=== PATIENT | female | born 1970 | race Caucasian/White ===

== ENCOUNTER → 2016-12-16 | Outpatient (CLI) | payer OTHER ==
[2016-12-16 13:33] LABS: BASO % 0.8 % (0.0-1.0); EOS # 0.2 K/mm3 (0.0-0.50); EOS % 2.9 % (0.0-3.0); LARGE UNSTAINED CELL # 0.1 K/mm3 (0.0-0.4); LARGE UNSTAINED CELL % 2.2 % (0.0-4.0); LYMPH # 2.4 K/mm3 (1.5-4.5); LYMPH % 40.5 % (24.0-44.0); MEAN CORPUSCULAR HGB CONC 33.8 g/dl (32.0-36.5); MEAN CORPUSCULAR VOLUME 85.7 fl (80.0-96.0); MONO # 0.4 K/mm3 (0.0-0.8); MONO % 6.7 % (0.0-5.0); NEUTROPHILS # 2.8 K/mm3 (1.8-7.7); NEUTROPHILS % 46.9 % (36.0-66.0); PLATELET COUNT, AUTOMATED 362 k/mm3 (150-450); RED CELL DISTRIBUTION WIDTH 12.9 % (11.5-14.5); WHITE BLOOD COUNT 5.9 K/mm3 (4.0-10.0)
[2016-12-16 13:58] LABS: ALBUMIN 3.9 GM/DL (3.2-5.2); ALBUMIN/GLOBULIN RATIO 1.34 (1.00-1.93); ALKALINE PHOSPHATASE 109 U/L (45-117); ALT/SGPT 57 U/L (12-78); ANION GAP 8 MEQ/L (8-16); AST/SGOT 26 U/L (15-37); BILIRUBIN,TOTAL 0.4 MG/DL (0.2-1.0); BLOOD UREA NITROGEN 6 MG/DL (7-18); CALCIUM LEVEL 8.8 MG/DL (8.5-10.1); CARBON DIOXIDE LEVEL 27 MEQ/L (21-32); CHLORIDE LEVEL 108 MEQ/L (98-107); CREATININE FOR GFR 0.76 MG/DL (0.55-1.02); FERRITIN 291 NG/ML (8-252); GLOMERULAR FILTRATION RATE > 60.0 (>58); GLUCOSE, FASTING 101 MG/DL (70-105); MAGNESIUM LEVEL 2.3 MG/DL (1.8-2.4); PERCENT SATURATION 21.3 % (13.2-37.4); PHOSPHORUS LEVEL 3.3 MG/DL (2.5-4.9); POTASSIUM SERUM 4.1 MEQ/L (3.5-5.1); SODIUM LEVEL 143 MEQ/L (136-145); TOTAL IRON BINDING CAPACITY 244 UG/DL (250-450); TOTAL PROTEIN 6.8 GM/DL (6.4-8.2)
[2016-12-16 14:07] LABS: VITAMIN B12 LEVEL 406 PG/ML (247-911)
[2016-12-17 11:33] LABS: PRETREATED FOLATE FOR RBCFOL 6.3 NG/ML
== END ==
LOC: M LAB 12:45
PROVIDERS: ATTEND Surgery
DX: K91.2 Postsurgical malabsorption, not elsewhere classified (principal)

== ENCOUNTER 2017-04-24 11:52 | Emergency (ER) | payer OTHER, SELFPAY ==
[~2017-04-24] VITALS: Ht 162.6 cm; Wt 84.5 kg
[2017-04-24] MEDS ORDERED: CYCL5TAB PO (13:24)
[2017-04-24] MEDS ORDERED: PRED20TA PO (13:24)
[2017-04-24 13:37] VITALS: BP 122/63
--- NOTE | 2017-04-24 18:07 | ECGEPIP ---
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
== END 2017-04-24 13:40 | disposition home or self-care (01) ==
LOC: M ED 11:52
DX: S46.811A Strain of other muscles, fascia and tendons at shoulder and upper arm level, right arm, initial encounter (principal); X58.XXXA Exposure to other specified factors, initial encounter; Y92.9 Unspecified place or not applicable; Y99.9 Unspecified external cause status; Y93.9 Activity, unspecified; Z98.84 Bariatric surgery status; Z88.1 Allergy status to other antibiotic agents; Z88.6 Allergy status to analgesic agent; Z88.8 Allergy status to other drugs, medicaments and biological substances

== ENCOUNTER 2017-04-27 06:37 | Emergency (ER) | payer SELFPAY ==
[~2017-04-27] VITALS: Ht 162.6 cm; Wt 84.5 kg
[~2017-04-27 06:37] MED LIST: CYCL5TAB PO; PRED20TA PO
[2017-04-27 06:41] VITALS: BP 120/60
[2017-04-27] MEDS ORDERED: NORCO, ANEXSIA 5/325MG TABLET (HYDROcodone/ACETAMINOPHEN) PO ONE (07:15)
--- NOTE | 2017-04-27 07:30 | REP ---
Clinical: Pain . Technique: Internal rotation, external rotation, and Y view left shoulder. Findings: No acute fracture or dislocation. The acromioclavicular and glenohumeral joints are intact. No periarticular calcifications or overt degenerative changes are appreciated. Sub acromial space is normal. Surrounding soft tissues are unremarkable. Impression: Normal age-appropriate left shoulder radiographs. Signed by Josué Pike MD 04/27/2017 07:22 A
[2017-04-27] MEDS ORDERED: HYDR-3713 PO (07:49)
== END 2017-04-27 08:00 | disposition home or self-care (01) ==
LOC: M ED 06:37
DX: M25.512 Pain in left shoulder (principal); E66.9 Obesity, unspecified; Z98.84 Bariatric surgery status; Z88.1 Allergy status to other antibiotic agents; Z88.8 Allergy status to other drugs, medicaments and biological substances; Z88.6 Allergy status to analgesic agent

== ENCOUNTER → 2017-05-27 | Outpatient (REF) ==
[~2017-05-27] MED LIST changes: +HYDR-3713 PO
--- NOTE | 2017-05-27 10:32 | REP ---
Chest two views HISTORY: Positive PPD Comparison: 05/18/2014 The lungs are clear. The heart is normal in size. The pulmonary vasculature is normal in appearance. The bony structure is intact. IMPRESSION: No acute disease. Signed by Masood Delacruz MD 05/27/2017 10:24 A
== END ==
LOC: M SMT 09:58
PROVIDERS: ATTEND Internal Medicine Nephrology
DX: Z00.00 Encounter for general adult medical examination without abnormal findings (principal)

== ENCOUNTER → 2017-06-14 | Outpatient (CLI) | payer OTHER ==
[2017-06-14 18:00] LABS: ALBUMIN 3.6 GM/DL (3.2-5.2); ALBUMIN/GLOBULIN RATIO 1.13 (1.00-1.93); ALKALINE PHOSPHATASE 158 U/L (45-117); ALT/SGPT 24 U/L (12-78); ANION GAP 10 MEQ/L (8-16); AST/SGOT 15 U/L (15-37); BILIRUBIN,TOTAL 0.3 MG/DL (0.2-1.0); BLOOD UREA NITROGEN 10 MG/DL (7-18); CALCIUM LEVEL 8.7 MG/DL (8.5-10.1); CARBON DIOXIDE LEVEL 26 MEQ/L (21-32); CHLORIDE LEVEL 109 MEQ/L (98-107); CREATININE FOR GFR 0.71 MG/DL (0.55-1.02); FERRITIN 213 NG/ML (8-252); GLOMERULAR FILTRATION RATE > 60.0 (>58); GLUCOSE, FASTING 119 MG/DL (70-105); MAGNESIUM LEVEL 2.2 MG/DL (1.8-2.4); PERCENT SATURATION 19.4 % (13.2-45.0); PHOSPHORUS LEVEL 4.3 MG/DL (2.5-4.9); POTASSIUM SERUM 4.2 MEQ/L (3.5-5.1); SODIUM LEVEL 145 MEQ/L (136-145); TOTAL IRON BINDING CAPACITY 283 UG/DL (250-450); TOTAL PROTEIN 6.8 GM/DL (6.4-8.2)
[2017-06-14 18:02] LABS: VITAMIN B12 LEVEL 734 PG/ML (247-911)
[2017-06-14 18:26] LABS: BASO % 0.6 % (0.0-1.0); EOS # 0.2 K/mm3 (0.0-0.50); EOS % 2.3 % (0.0-3.0); LARGE UNSTAINED CELL # 0.1 K/mm3 (0.0-0.4); LARGE UNSTAINED CELL % 1.1 % (0.0-4.0); LYMPH # 2.3 K/mm3 (1.5-4.5); LYMPH % 31.7 % (24.0-44.0); MEAN CORPUSCULAR HEMOGLOBIN 30.4 pg (27.0-33.0); MEAN CORPUSCULAR HGB CONC 34.2 g/dl (32.0-36.5); MEAN CORPUSCULAR VOLUME 88.9 fl (80.0-96.0); MONO # 0.4 K/mm3 (0.0-0.8); MONO % 5.7 % (0.0-5.0); NEUTROPHILS % 58.5 % (36.0-66.0); PLATELET COUNT, AUTOMATED 363 k/mm3 (150-450); RED CELL DISTRIBUTION WIDTH 13.4 % (11.5-14.5); WHITE BLOOD COUNT 6.9 K/mm3 (4.0-10.0)
[2017-06-17 11:59] LABS: PRETREATED FOLATE FOR RBCFOL 13.7 NG/ML
== END ==
LOC: M SMT 13:27
PROVIDERS: ATTEND Surgery
DX: K91.2 Postsurgical malabsorption, not elsewhere classified (principal); E55.9 Vitamin D deficiency, unspecified

== ENCOUNTER → 2018-06-24 | Outpatient (CLI) | payer SELFPAY, OTHER ==
[2018-06-24 09:47] LABS: BASO % 0.9 % (0.0-1.0); EOS # 0.1 10^3/uL (0.0-0.50); EOS % 2.4 % (0.0-3.0); HEMOGLOBIN 13.5 g/dl (12.0-15.5); IMMATURE GRANULOCYTE % 0.2 % (0-3.0); LYMPH # 2.2 10^3/uL (1.5-4.5); MEAN CORPUSCULAR HEMOGLOBIN 30.8 pg (27.0-33.0); MEAN CORPUSCULAR HGB CONC 34.6 g/dl (32.0-36.5); MONO # 0.4 10^3/uL (0.0-0.8); MONO % 7.7 % (0.0-5.0); NEUTROPHILS % 41.8 % (36.0-66.0); PLATELET COUNT, AUTOMATED 258 10^3/uL (150-450); RED BLOOD COUNT 4.38 10^6/uL (4.00-5.40); RED CELL DISTRIBUTION WIDTH 12.4 % (11.5-14.5); WHITE BLOOD COUNT 4.7 10^3/uL (4.0-10.0)
[2018-06-24 10:03] LABS: ESTIMATED AVERAGE GLUCOSE 100 MG/DL (60-110); HEMOGLOBIN A1c 5.1 %
[2018-06-24 10:20] LABS: ALBUMIN 3.9 GM/DL (3.2-5.2); ALBUMIN/GLOBULIN RATIO 1.44 (1.00-1.93); ALKALINE PHOSPHATASE 103 U/L (45-117); ALT/SGPT 34 U/L (12-78); ANION GAP 8 MEQ/L (8-16); AST/SGOT 18 U/L (7-37); BILIRUBIN,TOTAL 0.4 MG/DL (0.2-1.0); BLOOD UREA NITROGEN 12 MG/DL (7-18); CARBON DIOXIDE LEVEL 28 MEQ/L (21-32); CHLORIDE LEVEL 109 MEQ/L (98-107); CREATININE FOR GFR 0.64 MG/DL (0.55-1.30); FERRITIN 164 NG/ML (8-252); GLOMERULAR FILTRATION RATE > 60.0 (>58); GLUCOSE, FASTING 81 MG/DL (70-100); IRON (FE) 77 UG/DL (50-170); MAGNESIUM LEVEL 2.3 MG/DL (1.8-2.4); PERCENT SATURATION 27.3 % (13.2-45.0); PHOSPHORUS LEVEL 4.2 MG/DL (2.5-4.9); POTASSIUM SERUM 4.7 MEQ/L (3.5-5.1); SODIUM LEVEL 145 MEQ/L (136-145); TOTAL IRON BINDING CAPACITY 282 UG/DL (250-450); TOTAL PROTEIN 6.6 GM/DL (6.4-8.2)
[2018-06-26 09:55] LABS: TOTAL 25(OH) VITAMIN D 22.7 NG/ML (30.0-100.0)
[2018-06-26 09:56] LABS: VITAMIN B12 LEVEL 430 PG/ML (247-911)
[2018-06-27 16:31] LABS: PRETREATED FOLATE FOR RBCFOL 10.9 NG/ML; RBC FOLATE 586.9 NG/ML (280-791)
== END ==
LOC: M LAB 09:11
DX: K91.2 Postsurgical malabsorption, not elsewhere classified (principal); E55.9 Vitamin D deficiency, unspecified; Z98.84 Bariatric surgery status
CPT/HCPCS: 83550

== ENCOUNTER → 2019-02-08 | Outpatient (REF) | payer OTHER, SELFPAY ==
[2019-02-08 13:27] LABS: BASO # 0.1 10^3/uL (0.0-0.2); BASO % 1.2 % (0.0-1.0); EOS # 0.1 10^3/uL (0.0-0.50); EOS % 3.1 % (0.0-3.0); HEMATOCRIT 41.1 % (36.0-47.0); HEMOGLOBIN 13.8 g/dl (12.0-15.5); LYMPH # 1.9 10^3/uL (1.5-4.5); LYMPH % 46.3 % (24.0-44.0); MEAN CORPUSCULAR HEMOGLOBIN 30.5 pg (27.0-33.0); MEAN CORPUSCULAR HGB CONC 33.6 g/dl (32.0-36.5); MEAN CORPUSCULAR VOLUME 90.7 fl (80.0-96.0); MONO # 0.4 10^3/uL (0.0-0.8); MONO % 8.4 % (0.0-5.0); NEUTROPHILS # 1.7 10^3/uL (1.8-7.7); PLATELET COUNT, AUTOMATED 266 10^3/uL (150-450); RED BLOOD COUNT 4.53 10^6/uL (4.00-5.40); WHITE BLOOD COUNT 4.2 10^3/uL (4.0-10.0)
[2019-02-08 13:44] LABS: ALBUMIN 3.7 GM/DL (3.2-5.2); ALT/SGPT 32 U/L (12-78); BILIRUBIN,TOTAL 0.4 MG/DL (0.2-1.0); BLOOD UREA NITROGEN 10 MG/DL (7-18); CALCIUM LEVEL 8.3 MG/DL (8.5-10.1); CARBON DIOXIDE LEVEL 30 MEQ/L (21-32); CHLORIDE LEVEL 108 MEQ/L (98-107); CHOLESTEROL LEVEL 177 MG/DL (<200); CHOLESTEROL RISK RATIO 1.594 (<5); CREATININE FOR GFR 0.61 MG/DL (0.55-1.30); FOLATE 8.9 NG/ML; GLOMERULAR FILTRATION RATE > 60.0 (>58); GLUCOSE, FASTING 88 MG/DL (70-100); HDL CHOLESTEROL 111 MG/DL (>40); IRON (FE) 116 UG/DL (50-170); LDL CHOLESTEROL 54 MG/DL (<100); NON-HDL-C 66 MG/DL; POTASSIUM SERUM 4.6 MEQ/L (3.5-5.1); SODIUM LEVEL 142 MEQ/L (136-145); TOTAL 25(OH) VITAMIN D 11.8 NG/ML (30.0-100.0); TOTAL PROTEIN 6.5 GM/DL (6.4-8.2); TRIGLYCERIDES LEVEL 62 MG/DL (<150); VITAMIN B12 LEVEL 254 PG/ML
[2019-02-08 13:50] LABS: HEMOGLOBIN A1c 5.2 %
== END ==
LOC: M LAB REF 12:14
PROVIDERS: ATTEND Nurse Practitioner Adult Health
DX: Z00.00 Encounter for general adult medical examination without abnormal findings (principal)

== ENCOUNTER 2020-09-06 11:40 | Emergency (ER) | payer OTHER ==
[~2020-09-06] VITALS: Ht 162.6 cm; Wt 73.0 kg
[2020-09-06 11:41] VITALS: BP 147/64
== END 2020-09-06 12:51 | disposition home or self-care (01) ==
LOC: M ED 11:40
DX: S61.001A Unspecified open wound of right thumb without damage to nail, initial encounter (principal); X58.XXXA Exposure to other specified factors, initial encounter; Y92.019 Unspecified place in single-family (private) house as the place of occurrence of the external cause; Y93.9 Activity, unspecified; Y99.9 Unspecified external cause status; Z98.84 Bariatric surgery status

== ENCOUNTER → 2021-02-13 | Outpatient (REF) | payer OTHER ==
[2021-02-13 17:51] LABS: BASO # 0.1 10^3/uL (0.0-0.2); BASO % 0.8 % (0.0-1.0); EOS # 0.2 10^3/uL (0.0-0.5); EOS % 2.5 % (0.0-3.0); HEMATOCRIT 42.6 % (36.0-47.0); HEMOGLOBIN 13.8 g/dl (12.0-15.5); LYMPH # 2.3 10^3/uL (1.5-5.0); LYMPH % 38.6 % (24.0-44.0); MEAN CORPUSCULAR HEMOGLOBIN 29.9 pg (27.0-33.0); MEAN CORPUSCULAR HGB CONC 32.4 g/dl (32.0-36.5); MEAN CORPUSCULAR VOLUME 92.4 fl (80.0-96.0); MONO # 0.6 10^3/uL (0.0-0.8); MONO % 9.6 % (2.0-8.0); NEUTROPHILS # 2.9 10^3/uL (1.5-8.5); NEUTROPHILS % 48.3 % (36.0-66.0); PLATELET COUNT, AUTOMATED 349 10^3/uL (150-450); RED BLOOD COUNT 4.61 10^6/uL (4.00-5.40)
[2021-02-13 18:12] LABS: ALBUMIN 3.9 GM/DL (3.2-5.2); ALT/SGPT 24 U/L (12-78); BILIRUBIN,TOTAL 0.3 MG/DL (0.2-1.0); BLOOD UREA NITROGEN 10 MG/DL (7-18); CALCIUM LEVEL 9.1 MG/DL (8.5-10.1); CARBON DIOXIDE LEVEL 25 MEQ/L (21-32); CHLORIDE LEVEL 108 MEQ/L (98-107); CHOLESTEROL LEVEL 222 MG/DL (<200); CHOLESTEROL RISK RATIO 1.964 (<5); CREATININE FOR GFR 0.64 MG/DL (0.55-1.30); FERRITIN 34 NG/ML (8-252); FOLATE 11.1 NG/ML; FREE T4 0.75 NG/DL (0.76-1.46); GLOMERULAR FILTRATION RATE > 60.0 (>58); GLUCOSE, FASTING 103 MG/DL (70-100); HDL CHOLESTEROL 113 MG/DL (>40); IRON (FE) 63 UG/DL (50-170); LDL CHOLESTEROL 86 MG/DL (<100); NON-HDL-C 109 MG/DL; PERCENT SATURATION 17.8 % (13.2-45.0); POTASSIUM SERUM 3.9 MEQ/L (3.5-5.1); SODIUM LEVEL 141 MEQ/L (136-145); TOTAL 25(OH) VITAMIN D 10.1 NG/ML (30.0-100.0); TOTAL IRON BINDING CAPACITY 353 UG/DL (250-450); TOTAL PROTEIN 6.7 GM/DL (6.4-8.2); TRIGLYCERIDES LEVEL 113 MG/DL (<150); VITAMIN B12 LEVEL 205 PG/ML
[2021-02-13 18:41] LABS: HEMOGLOBIN A1c 5.1 %
== END ==
LOC: M LAB REF 16:41
PROVIDERS: ATTEND Physician Assistant
DX: E55.9 Vitamin D deficiency, unspecified (principal); Z13.228 Encounter for screening for other metabolic disorders; Z13.220 Encounter for screening for lipoid disorders; Z98.84 Bariatric surgery status

== ENCOUNTER → 2021-06-13 | Outpatient (CLI) | payer OTHER ==
--- NOTE | 2021-06-13 10:01 | REP ---
INDICATION: PAIN IN RIGHT WRIST COMPARISON: None. TECHNIQUE: AP, lateral, bilateral oblique views right wrist. FINDINGS: The carpal bones, surrounding osseous structures, soft tissues, and joint spaces are normal. There is no evidence for acute fracture or dislocation. No subcutaneous emphysema or radiodense foreign body. IMPRESSION: Normal wrist series. No acute fracture or dislocation. <Electronically signed by Josué Pike > 06/13/21 [id number]
--- NOTE | 2021-06-13 10:02 | REP ---
INDICATION: PAIN IN RIGHT WRIST COMPARISON: None. TECHNIQUE: AP, lateral, bilateral oblique views right 1st digit. FINDINGS: The osseous structures and joint spaces are intact and normal. There is no evidence for acute fracture or dislocation. Surrounding soft tissues are unremarkable. No subcutaneous emphysema or radiodense foreign body. IMPRESSION: Normal age-appropriate right 1st digit radiographs. <Electronically signed by Josué Pike > 06/13/21 0905
== END ==
LOC: M RAD 09:11
PROVIDERS: ATTEND Pediatrics
DX: M25.531 Pain in right wrist (principal); M79.644 Pain in right finger(s)

== ENCOUNTER → 2021-10-17 | Outpatient (CLI) | payer OTHER ==
--- NOTE | 2021-10-17 09:54 | REP ---
INDICATION: SCREENING FOR RESPIRATORY TUBERCULOSIS/LABS AFTER XRAY COMPARISON: 05/27/2017 TECHNIQUE: PA and lateral. FINDINGS: The mediastinum and cardiac silhouette are normal. The lung lemus are clear and without acute consolidation, effusion, or pneumothorax. The skeletal structures are intact and normal. IMPRESSION: No acute cardiopulmonary process. <Electronically signed by Jousé Pike > 10/17/21 0971
[2021-10-19 14:11] LABS: MUMPS VIRUS IgG ANTIBODY 99.1 AU/mL (Immune >10.9); RUBEOLA IgG ANTIBODY >300.0 AU/mL (Immune >16.4)
== END ==
LOC: M RAD 09:33
PROVIDERS: ATTEND Physician Assistant
DX: Z11.1 Encounter for screening for respiratory tuberculosis (principal)

== ENCOUNTER → 2023-04-08 | Outpatient (REF) | payer OTHER ==
[2023-04-08 13:21] LABS: BASO % 0.6 % (0.0-1.0); EOS # 0.1 10^3/uL (0.0-0.5); EOS % 2.1 % (0.0-3.0); HEMATOCRIT 44.5 % (36.0-47.0); HEMOGLOBIN 14.8 g/dl (12.0-15.5); LYMPH # 2.3 10^3/uL (1.5-5.0); LYMPH % 34.6 % (24.0-44.0); MEAN CORPUSCULAR HEMOGLOBIN 30.1 pg (27.0-33.0); MEAN CORPUSCULAR HGB CONC 33.3 g/dl (32.0-36.5); MEAN CORPUSCULAR VOLUME 90.6 fl (80.0-96.0); MONO # 0.6 10^3/uL (0.0-0.8); MONO % 9.8 % (2.0-8.0); NEUTROPHILS # 3.4 10^3/uL (1.5-8.5); PLATELET COUNT, AUTOMATED 384 10^3/uL (150-450); RED BLOOD COUNT 4.91 10^6/uL (4.00-5.40); WHITE BLOOD COUNT 6.5 10^3/uL (4.0-10.0)
[2023-04-08 13:46] LABS: ALKALINE PHOSPHATASE 152 U/L (46-116); ALT/SGPT 22 U/L (7.0-40); AST/SGOT 9 U/L (<34); BILIRUBIN,TOTAL 0.5 MG/DL (0.3-1.2); BLOOD UREA NITROGEN 11 MG/DL (9-23); CALCIUM LEVEL 9.2 MG/DL (8.5-10.1); CARBON DIOXIDE LEVEL 26 MMOL/L (20-31); CHLORIDE LEVEL 106 MMOL/L (98-107); CHOLESTEROL LEVEL 220 MG/DL (<200); CHOLESTEROL RISK RATIO 2.24 (<5); CREATININE FOR GFR 0.65 MG/DL (0.55-1.30); GLOMERULAR FILTRATION RATE > 60.0 (>51); GLUCOSE, FASTING 92 MG/DL (60-100); HDL CHOLESTEROL 98.2 MG/DL (>40); LDL CHOLESTEROL 97.4 MG/DL (<100); NON-HDL-C 121.8 MG/DL; POTASSIUM SERUM 5.1 MMOL/L (3.5-5.1); SODIUM LEVEL 138 MMOL/L (136-145); THYROID STIMULATING HORMONE 1.646 uIU/ML (0.55-4.78); TOTAL 25(OH) VITAMIN D 33.4 NG/ML (20.0-100.0); TOTAL PROTEIN 6.8 G/DL (5.7-8.2); TRIGLYCERIDES LEVEL 122 MG/DL (<150)
== END ==
LOC: M LAB REF 12:18
PROVIDERS: ATTEND Nurse Practitioner Family
DX: E66.3 Overweight (principal); E55.9 Vitamin D deficiency, unspecified; Z11.9 Encounter for screening for infectious and parasitic diseases, unspecified

== ENCOUNTER → 2023-11-01 | Outpatient (REF) | payer OTHER ==
[2023-11-02 14:19] LABS: PERCENT SATURATION 16.1 % (13.2-45.0)
[2023-11-02 14:22] LABS: FOLATE 12.2 NG/ML (>5.4)
== END ==
LOC: M LAB REF 12:18
PROVIDERS: ATTEND Nurse Practitioner Family
DX: Z98.84 Bariatric surgery status (principal); E61.1 Iron deficiency

== ENCOUNTER 2024-01-29 12:27 | Emergency (ER) | payer OTHER ==
[~2024-01-29] VITALS: Ht 162.6 cm; Wt 96.2 kg
[2024-01-29] MEDS ORDERED: LEXA5TAB13 (12:55)
[2024-01-29] MEDS ORDERED: FERR325T3 (12:55)
[2024-01-29] MEDS ORDERED: CYAN100049 (12:56)
[2024-01-29] MEDS ORDERED: ERGO500029 (12:56)
[2024-01-29] MEDS ORDERED: HYDR-3363 PO (16:19)
[2024-01-29 16:40] VITALS: BP 124/61; TEMP 98.1; O2SAT 100
== END 2024-01-29 16:41 | disposition home or self-care (01) ==
LOC: M ED 12:27
DX: J10.1 Influenza due to other identified influenza virus with other respiratory manifestations (principal); I45.9 Conduction disorder, unspecified; F41.9 Anxiety disorder, unspecified; Z98.84 Bariatric surgery status; Z88.1 Allergy status to other antibiotic agents; Z88.6 Allergy status to analgesic agent; Z88.8 Allergy status to other drugs, medicaments and biological substances; Z79.52 Long term (current) use of systemic steroids; Z79.899 Other long term (current) drug therapy

== ENCOUNTER → 2024-02-20 | Outpatient (REF) | payer OTHER ==
[~2024-02-20] MED LIST changes: +CYAN100049; +ERGO500029; +FERR325T3; +HYDR-3363 PO; +LEXA5TAB13
[2024-02-21 14:17] LABS: BASO # 0.1 10^3/uL (0.0-0.2); BASO % 0.8 % (0.0-1.0); EOS # 0.2 10^3/uL (0.0-0.5); EOS % 1.9 % (0.0-3.0); HEMATOCRIT 39.9 % (36.0-47.0); HEMOGLOBIN 13.4 g/dl (12.0-15.5); LYMPH # 2.3 10^3/uL (1.5-5.0); LYMPH % 26.5 % (24.0-44.0); MEAN CORPUSCULAR HGB CONC 33.6 g/dl (32.0-36.5); MEAN CORPUSCULAR VOLUME 89.5 fl (80.0-96.0); MONO # 0.9 10^3/uL (0.0-0.8); MONO % 10.5 % (2.0-8.0); NEUTROPHILS # 5.1 10^3/uL (1.5-8.5); NEUTROPHILS % 59.7 % (36.0-66.0); PLATELET COUNT, AUTOMATED 343 10^3/uL (150-450); RED BLOOD COUNT 4.46 10^6/uL (4.00-5.40); WHITE BLOOD COUNT 8.5 10^3/uL (4.0-10.0)
== END ==
LOC: M LAB REF 12:43
PROVIDERS: ATTEND Nurse Practitioner Family
DX: F41.9 Anxiety disorder, unspecified (principal)

== ENCOUNTER 2024-04-04 09:59 | Emergency (ER) | payer OTHER ==
[~2024-04-04] VITALS: Ht 162.6 cm; Wt 90.0 kg
[2024-04-04] MEDS ORDERED: CITA10TA7 (10:17)
[2024-04-04] MEDS ORDERED: LORA-1041 (10:17)
[2024-04-04] MEDS ORDERED: FAMO1TAB11 (10:17)
[2024-04-04] MEDS: PANTOPRAZOLE 40MG VIAL IV ONE (12:35)
[2024-04-04 12:52] LABS: BASO % 0.5 % (0.0-1.0); EOS % 0.3 % (0.0-3.0); HEMATOCRIT 43.1 % (36.0-47.0); HEMOGLOBIN 14.4 g/dl (12.0-15.5); LYMPH # 1.8 10^3/uL (1.5-5.0); LYMPH % 23.5 % (24.0-44.0); MEAN CORPUSCULAR HEMOGLOBIN 29.7 pg (27.0-33.0); MEAN CORPUSCULAR HGB CONC 33.4 g/dl (32.0-36.5); MEAN CORPUSCULAR VOLUME 88.9 fl (80.0-96.0); MONO # 0.4 10^3/uL (0.0-0.8); MONO % 5.9 % (2.0-8.0); NEUTROPHILS # 5.2 10^3/uL (1.5-8.5); NEUTROPHILS % 69.5 % (36.0-66.0); PLATELET COUNT, AUTOMATED 325 10^3/uL (150-450); RED BLOOD COUNT 4.85 10^6/uL (4.00-5.40); WHITE BLOOD COUNT 7.5 10^3/uL (4.0-10.0)
[2024-04-04 13:19] LABS: LIPASE 31 U/L (12-53)
[2024-04-04 13:21] LABS: ALKALINE PHOSPHATASE 143 U/L (46-116); ALT/SGPT 17 U/L (7.0-40); AST/SGOT 12 U/L (<34); BILIRUBIN,DIRECT 0.2 MG/DL (<0.4); BILIRUBIN,TOTAL 0.5 MG/DL (0.3-1.2); BLOOD UREA NITROGEN 6 MG/DL (9-23); CALCIUM LEVEL 9.7 MG/DL (8.5-10.1); CARBON DIOXIDE LEVEL 25 MMOL/L (20-31); CHLORIDE LEVEL 108 MMOL/L (98-107); CREATININE FOR GFR 0.66 MG/DL (0.55-1.30); GLOMERULAR FILTRATION RATE > 60.0 (>51); GLUCOSE, FASTING 100 MG/DL (60-100); POTASSIUM SERUM 4.2 MMOL/L (3.5-5.1); SODIUM LEVEL 139 MMOL/L (136-145); TOTAL PROTEIN 6.7 G/DL (5.7-8.2)
[2024-04-04 14:31] VITALS: BP 146/76; TEMP 98; O2SAT 99
[2024-04-04] MEDS ORDERED: PROT1TAB2 PO (14:35)
== END 2024-04-04 14:37 | disposition home or self-care (01) ==
LOC: M ED 09:59
DX: K21.9 Gastro-esophageal reflux disease without esophagitis (principal); I45.81 Long QT syndrome; I45.9 Conduction disorder, unspecified; I10 Essential (primary) hypertension; Z98.84 Bariatric surgery status; Z88.1 Allergy status to other antibiotic agents; Z88.6 Allergy status to analgesic agent; Z88.8 Allergy status to other drugs, medicaments and biological substances; Z79.810 Long term (current) use of selective estrogen receptor modulators (SERMs); Z79.899 Other long term (current) drug therapy; Z79.52 Long term (current) use of systemic steroids
CPT/HCPCS: 71046; 80048; 80076; 81001; 83690; 83735; 85025; 87486; 87581; 87633; 87798; 93005; 96372; 99284; C9113

== ENCOUNTER → 2024-04-24 | Outpatient (CLI) | payer OTHER ==
[~2024-04-24] MED LIST changes: +CITA10TA7; +FAMO1TAB11; +LORA-1041; +PROT1TAB2 PO
== END ==
LOC: M PLAIMG 09:01
PROVIDERS: ATTEND Family Medicine Addiction Medicine
DX: R10.13 Epigastric pain (principal); Z98.84 Bariatric surgery status; Z90.49 Acquired absence of other specified parts of digestive tract

== ENCOUNTER → 2024-04-24 | Outpatient (CLI) | payer OTHER ==
[2024-04-24 15:10] LABS: CHOLESTEROL RISK RATIO 2.68 (<5); HDL CHOLESTEROL 61.8 MG/DL (>40); LDL CHOLESTEROL 87.2 MG/DL (<100); NON-HDL-C 104.2 MG/DL
[2024-04-24 15:48] LABS: HEMOGLOBIN A1c 5.2 % (4.0-6.0)
== END ==
LOC: M PLALAB 09:09
PROVIDERS: ATTEND Nurse Practitioner Family
DX: E66.3 Overweight (principal)

== ENCOUNTER → 2024-04-24 | Outpatient (CLI) | payer OTHER ==
[2024-04-24 14:54] LABS: BASO % 0.5 % (0.0-1.0); EOS # 0.1 10^3/uL (0.0-0.5); EOS % 0.8 % (0.0-3.0); HEMOGLOBIN 14.9 g/dl (12.0-15.5); LYMPH # 2.2 10^3/uL (1.5-5.0); LYMPH % 33.8 % (24.0-44.0); MEAN CORPUSCULAR HEMOGLOBIN 29.7 pg (27.0-33.0); MEAN CORPUSCULAR HGB CONC 33.9 g/dl (32.0-36.5); MEAN CORPUSCULAR VOLUME 87.8 fl (80.0-96.0); MONO # 0.6 10^3/uL (0.0-0.8); MONO % 9.4 % (2.0-8.0); NEUTROPHILS # 3.6 10^3/uL (1.5-8.5); NEUTROPHILS % 55.3 % (36.0-66.0); PLATELET COUNT, AUTOMATED 367 10^3/uL (150-450); RED BLOOD COUNT 5.01 10^6/uL (4.00-5.40); WHITE BLOOD COUNT 6.4 10^3/uL (4.0-10.0)
[2024-04-24 15:14] LABS: ALBUMIN 4.1 G/DL (3.2-5.2); ALKALINE PHOSPHATASE 134 U/L (46-116); ALT/SGPT 15 U/L (7.0-40); AST/SGOT < 8 U/L (<34); BILIRUBIN,DIRECT 0.2 MG/DL (<0.4); BILIRUBIN,TOTAL 0.6 MG/DL (0.3-1.2); BLOOD UREA NITROGEN 6 MG/DL (9-23); CALCIUM LEVEL 9.6 MG/DL (8.5-10.1); CARBON DIOXIDE LEVEL 20 MMOL/L (20-31); CHLORIDE LEVEL 111 MMOL/L (98-107); CREATININE FOR GFR 0.67 MG/DL (0.55-1.30); FREE T4 1.39 NG/DL (0.89-1.76); GLOMERULAR FILTRATION RATE > 60.0 (>51); GLUCOSE, FASTING 100 MG/DL (60-100); IRON (FE) 93 UG/DL (50-170); PERCENT SATURATION 31.5 % (13.2-45.0); POTASSIUM SERUM 4.3 MMOL/L (3.5-5.1); SODIUM LEVEL 141 MMOL/L (136-145); THYROID STIMULATING HORMONE 1.038 uIU/ML (0.55-4.78); TOTAL IRON BINDING CAPACITY 295 UG/DL (250-425); TOTAL PROTEIN 6.5 G/DL (5.7-8.2)
[2024-04-24 15:15] LABS: IMMUNOGLOBULIN A 216.9 MG/DL (40-350); TOTAL 25(OH) VITAMIN D 65.4 NG/ML (20.0-100.0); VITAMIN B12 LEVEL 447 PG/ML (211-911)
[2024-04-24 15:16] LABS: FOLATE 7.1 NG/ML (>5.4)
[2024-04-25 18:09] LABS: ENDOMYSIAL ABY IgA Negative (Negative)
[2024-04-26 01:18] LABS: TISSUE TRANSGLUTAMINASE IgA < 1.0 U/mL (<15.0); TISSUE TRANSGLUTAMINASE IgG < 1.0 U/mL (<15.0)
[2024-04-26 02:57] LABS: UNITSIGA FOR GLIADIN IGA 2.3 U/mL (<15.0); UNITSIGG FOR GLIADIN IGG < 1.0 U/mL (<15.0)
== END ==
LOC: M PLALAB 09:07
PROVIDERS: ATTEND Internal Medicine Gastroenterology
DX: R10.13 Epigastric pain (principal)

== ENCOUNTER → 2024-06-25 | Outpatient (CLI) | payer OTHER | LOC: M CARPUL 14:13 | PROVIDERS: ATTEND Nurse Practitioner Family | DX: R06.02 Shortness of breath (principal) ==

== ENCOUNTER → 2024-07-26 | Outpatient (REF) | payer OTHER ==
[2024-07-26 14:15] LABS: MAGNESIUM LEVEL 2.2 MG/DL (1.8-2.4)
[2024-07-30 19:27] LABS: ALKALINE PHOSPHATASE ISO-MACR0 0 % (<=0); ALKALINE PHOSPHATASE ISO-PLAC 0 % (<=0); Alkaline Phosphatase Iso-Bone 40 % (28-66); Alkaline Phosphatase Iso-Intes 0 % (1-24); Alkaline Phosphatase Iso-Liver 60 % (25-69); TOTAL ALK PHOS 131 U/L (37-153)
== END ==
LOC: M LAB REF 12:38
PROVIDERS: ATTEND Nurse Practitioner Family
DX: E83.41 Hypermagnesemia (principal); R74.8 Abnormal levels of other serum enzymes

== ENCOUNTER → 2024-09-25 | Outpatient (REF) | payer OTHER ==
[~2024-09-25] MED LIST changes: -CYCL5TAB PO; +CYCL5TAB4 PO
[2024-09-25 19:05] LABS: BASO # 0.1 10^3/uL (0.0-0.2); EOS # 0.4 10^3/uL (0.0-0.5); EOS % 4.4 % (0.0-3.0); HEMOGLOBIN 13.9 g/dl (12.0-15.5); LYMPH # 2.4 10^3/uL (1.5-5.0); LYMPH % 29.6 % (24.0-44.0); MEAN CORPUSCULAR HEMOGLOBIN 29.8 pg (27.0-33.0); MEAN CORPUSCULAR HGB CONC 33.1 g/dl (32.0-36.5); MEAN CORPUSCULAR VOLUME 90.1 fl (80.0-96.0); MONO # 0.8 10^3/uL (0.0-0.8); MONO % 9.5 % (2.0-8.0); NEUTROPHILS # 4.4 10^3/uL (1.5-8.5); NEUTROPHILS % 55.1 % (36.0-66.0); PLATELET COUNT, AUTOMATED 343 10^3/uL (150-450); RED BLOOD COUNT 4.66 10^6/uL (4.00-5.40)
[2024-09-25 19:25] LABS: FERRITIN 32.4 NG/ML (7.3-270.7); THYROID STIMULATING HORMONE 2.059 uIU/ML (0.55-4.78)
== END ==
LOC: M LAB REF 17:27
PROVIDERS: ATTEND Nurse Practitioner Family
DX: E61.1 Iron deficiency (principal); R53.83 Other fatigue; R06.83 Snoring